=== PATIENT | female | born 1950 | race Caucasian/White ===

== ENCOUNTER 2017-07-31 10:16 | Outpatient (CLI) | payer MEDICARE ==
--- NOTE | 2017-07-31 11:29 | MMO ---
BILATERAL SCREENING MAMMOGRAMS: Date: 07/31/17 Comparison made to prior exams from 2012 and 2015. This patient's mammogram was interpreted with the assistance of computer-aided detection. FINDINGS: There are scattered fibroglandular densities. Biopsy clip in the left breast again noted with small nodular density, which is stable. No suspicious calcification, mass, or distortion. No interval heard ge is noted. Recommend one year follow-up. IMPRESSION: BIRADS 2: Benign Finding(s) POS: YNES
--- NOTE | 2017-07-31 12:23 | BD ---
BONE DENSITY STUDY: History: 67-year-old female post-menopausal osteoporosis screening. Lumbar Spine: BMD (g/cm2) L1 1.069 T-Score: 0.7 L2 1.147 T-Score: 1.1 L3 1.141 T-Score: 0.5 L4 1.123 T-Score: 0.6 L1-L4 1.121 T-Score: 0.7 Femoral Neck: 0.754 T-Score: 0.9 Total Femur: 0.978 T-Score: 0.3 Impression: Bone mineral density lumbar spine and femoral neck are within normal range. POS: RICHIE
== END 2017-07-31 10:17 | disposition home or self-care (01) ==
LOC: MAMMO 10:16
PROVIDERS: ATTEND Family Medicine
DX: Z12.31 Encounter for screening mammogram for malignant neoplasm of breast (principal); Z13.820 Encounter for screening for osteoporosis
CPT/HCPCS: 77080; G0202; 77067

== ENCOUNTER 2018-08-07 11:20 | Outpatient (CLI) | payer MEDICARE | END 2018-08-07 11:21 | disposition home or self-care (01) | LOC: BICMAMMO 11:20 | PROVIDERS: ATTEND Family Medicine | DX: Z12.31 Encounter for screening mammogram for malignant neoplasm of breast (principal) | CPT/HCPCS: 77063; 77067 ==